=== PATIENT | female | born 1970 | race Caucasian/White ===

== ENCOUNTER 2017-01-07 12:54 | Inpatient (IN) | payer OTHER ==
[~2017-01-07] VITALS: Ht 157.5 cm; Wt 63.1 kg
[~2017-01-07 12:54] MED LIST: ALPR0.5T6 PO; PARO10TA76 PO
[2017-01-07] MEDS ORDERED: ALPRAZOLAM 0.25 MG TAB PO ONE (14:00)
--- NOTE | 2017-01-07 14:32 | RADRPT ---
PROCEDURE: XR Chest. CLINICAL INDICATION: Stroke. Shortness of breath. TECHNIQUE: Single frontal view. COMPARISON: None. FINDINGS: The lungs are clear. The heart size is normal. There is no pleural effusion. There is no pneumothorax. IMPRESSION: 1. Normal chest radiograph. RPTAT: QQ .Samuel Coe MD, MD Date Time Electronically viewed and signed by .Samuel Coe MD, MD on 01/07/2017 14:32 .R/
--- NOTE | 2017-01-07 14:49 | RADRPT ---
PROCEDURE: CT Brain without contrast. CLINICAL INDICATION: Headache, right facial numbness TECHNIQUE: Routine CT scan of the brain was performed on a high resolution multi detector scanner without intravenous contrast. One or more of the following dose reduction techniques were used: Auto mated exposure control; Adjustment of the mA and/or kV according to patient size; Use of iterative r econstruction technique. CTDI = 44 mGy. DLP = 720 mGy-cm. COMPARISON: No prior relevant examinations are available for comparison. FINDINGS: Hemorrhage: No evidence of intracranial hemorrhage. Acute ischemic changes: No evidence of acute ischemic changes. Mass effect/Midline shift: None. Parenchymal volume: Within normal limits for age. Ventricular system: Concordant with parenchymal volume. Chronic changes: Parenchymal attenuation is within normal limits. Extracranial soft tissues: Unremarkable. Calvarium: No fractures. Paranasal sinuses: Visualized paranasal sinuses are clear. Mastoid air cells: Visualized mastoid air cells are clear. IMPRESSION: No acute intracranial abnormalities. Normal appearance the brain parenchyma. MRI of the brain may be useful for further evaluation. RPTAT: AADD .Dominic Altamirano MD, MD Date Time Electronically viewed and signed by .Dominic Altamirano MD, on 01/07/2017 14:48 .B/
[2017-01-07 15:09] LABS: BASOPHILS % 0.3 % (0.0-2.0); EOSINOPHILS % 0.3 % (0.0-7.0); HEMATOCRIT 45.5 % (37.0-47.0); HEMOGLOBIN 15.6 g/dl (12.0-16.0); LYMPHOCYTES # 1.5 10^3/ul (0.8-2.9); LYMPHOCYTES % 15.1 % (15.0-51.0); MEAN CORPUSCULAR HEMOGLOBIN 30.3 pg (29.0-33.0); MEAN CORPUSCULAR HGB CONC 34.2 g/dl (32.0-37.0); MEAN CORPUSCULAR VOLUME 88.4 fl (82.0-101.0); MEAN PLATELET VOLUME 9.6 fl (7.4-10.4); MONOCYTE # 0.5 10^3/ul (0.3-0.9); MONOCYTES % 4.6 % (0.0-11.0); NEUTROPHIL # 8.1 10^3/ul (1.6-7.5); NEUTROPHILS % 79.7 % (39.0-77.0); PLATELET COUNT 309 10^3/UL (140-440); RED BLOOD COUNT 5.14 10^6/ul (4.20-5.40); RED CELL DISTRIBUTION WIDTH 12.6 % (11.5-14.5); UNCORRECTED WBC 10.2 10^3/ul (4.8-10.8); WHITE BLOOD COUNT 10.2 10^3/ul (4.8-10.8)
[2017-01-07 15:09] LABS: ADD UMIC NO; URINE BILIRUBIN (Dip) NEGATIVE (NEGATIVE); URINE BLOOD (Dip) NEGATIVE (NEGATIVE); URINE COLOR LT. YELLOW (YELLOW); URINE GLUCOSE (Dip) NEGATIVE (NEGATIVE); URINE KETONES (Dip) NEGATIVE (NEGATIVE); URINE LEUKOCYTE ESTERASE (Dip) NEGATIVE (NEGATIVE); URINE NITRITE (Dip) NEGATIVE (NEGATIVE); URINE TOTAL PROTEIN (Dip) NEGATIVE (NEGATIVE); URINE UROBILINOGEN (Dip) 0.2 E.U./dL (0.1-1.0)
[2017-01-07 15:10] LABS: INR 0.9; PROTIME 12.1 Sec (12.2-14.2); PT RATIO 0.9
[2017-01-07 15:11] LABS: CONDITION 1; PARTIAL THROMBOPLASTIN TIME 25.2 Sec (25.0-35.0)
[2017-01-07 15:15] LABS: CHLORIDE 102 mmol/L (97-110); POTASSIUM 4.4 mmol/L (3.5-5.1); SODIUM 143 mmol/L (135-144)
[2017-01-07 15:18] LABS: ANION GAP 20 (8-16); BLOOD UREA NITROGEN 10 mg/dl (7-20); CARBON DIOXIDE 25 mmol/L (21-31); CREATININE 0.52 mg/dl (0.44-1.00)
[2017-01-07 15:19] LABS: CALCIUM 10.4 mg/dl (8.4-10.2); GLUCOSE 99 mg/dl (70-220)
[2017-01-07 15:30] LABS: TROPONIN-I < 0.012 ng/ml (0.00-0.12)
[2017-01-07 15:30] LABS: BARBITURATES Negative (NEGATIVE); BENZODIAZEPINES Negative (NEGATIVE); CANNABINOIDS Negative (NEGATIVE); COCAINE Negative (NEGATIVE)
[2017-01-07 15:31] LABS: OPIATES Negative (NEGATIVE)
[2017-01-07] MEDS ORDERED: ASPIRIN 325 MG TAB PO ONE (16:00)
[2017-01-07] MEDS ORDERED: ONDANSETRON 4 MG INJ IV PRN ×2 (17:00→18:30)
[2017-01-07] MEDS ORDERED: ACETAMINOPHEN 325 MG TAB PO PRN ×2 (17:00→18:30)
--- NOTE | 2017-01-07 17:59 | ERA ---
ER Documentation Chief Complaint Date/Time DATE: 01/07/17 TIME: 17:48 Chief Complaint NUMBNESS TO RT SIDE OF FACE SINCE YESTERDAY , B/L EQUAL OCCUPATIONAL THERAPIST ASSISTANTS HPI 46-year-old female with history of hypertension presents for numbness of the entire right side of her head including her scalp and her face that began around the midday yesterday. She also has right arm numbness. She has no weakness of any kind. Denies any other symptoms. She has been speaking normally and does not have any dizziness. ROS All systems reviewed and are negative except as per history of present illness. Medications Home Meds Reported Medications Paroxetine Hcl* (Paroxetine*) 10 Mg Tablet, 10 MG PO DAILY 08/20/13 Alprazolam* (Alprazolam*) 0.5 Mg Tablet, 0.5 MG PO HS 08/20/13 Allergies Allergies: Coded Allergies: No Known Allergy (Unverified , 08/20/13) PMhx/Soc History of Surgery: Yes (PARTIAL HYSTERECTOMY, TONSILLECTOMY, BUNYON REMOVAL) Anesthesia Reaction: No Hx Neurological Disorder: No Hx Respiratory Disorders: No Hx Cardiac Disorders: Yes (HTN) Hx Psychiatric Problems: Yes (ANXIETY DISORDER & DEPRESSION) Hx Miscellaneous Medical Probl: No Hx Alcohol Use: Yes (2 glasses/night) Hx Substance Use: No Hx Tobacco Use: Yes (1-2 CIGARETTES AT NIGHT TIME) Smoking Status: Current every day smoker Physical Exam Vitals Vital Signs Date Time Temp Pulse Resp B/P Pulse Ox O2 Delivery O2 Flow Rate FiO2 01/07/17 16:37 57 18 147/97 99 Room Air 01/07/17 12:57 97.9 68 18 182/86 99 Physical Exam Const: [] No distress Head: Atraumatic Eyes: Normal Conjunctiva ENT: Normal External Ears, Nose and Mouth. Neck: Full range of motion..~ No meningismus. Resp: Clear to auscultation bilaterally Cardio: Regular rate and rhythm, no murmurs Abd: Soft, non tender, non distended. Normal bowel sounds Skin: No petechiae or rashes Back: No midline or flank tenderness Ext: No cyanosis, or edema Neur: Awake and alert and oriented 3, cranial nerves II through XII intact, cerebellar intact, 5 out of 5 strength all extremities distally and proximally, normal gait, NIH equals 1 4 perceived right facial and right arm numbness. Patient is able to discern 2. tactile stimulation and has no specific sensory deficits except for those reported subjectively. Psych: Normal Mood and Affect Result Diagram: 01/07/17 1418 01/07/17 1418 Results 24 hrs Laboratory Tests Test 01/07/17 14:18 01/07/17 14:24 01/07/17 14:50 Activated Partial Thromboplast Time 25.2Sec Anion Gap 20 Basophils # 0.010^3/ul Basophils % 0.3% Blood Urea Nitrogen 10mg/dl Calcium Level 10.4mg/dl Carbon Dioxide Level 25mmol/L Chloride Level 102mmol/L Creatinine 0.52mg/dl Eosinophils # 0.010^3/ul Eosinophils % 0.3% Glucose Level 99mg/dl Hematocrit 45.5% Hemoglobin 15.6g/dl INR International Normalized Ratio 0.90 Lymphocytes # 1.510^3/ul Lymphocytes % 15.1% Mean Corpuscular Hemoglobin 30.3pg Mean Corpuscular Hemoglobin Concent 34.2g/dl Mean Corpuscular Volume 88.4fl Mean Platelet Volume 9.6fl Monocytes # 0.510^3/ul Monocytes % 4.6% Neutrophils # 8.110^3/ul Neutrophils % 79.7% Nucleated Red Blood Cells # 0.010^3/ul Nucleated Red Blood Cells % 0.0/100WBC Platelet Count 94033^3/UL Potassium Level 4.4mmol/L Prothrombin Time 12.1Sec Prothrombin Time Ratio 0.9 Red Blood Count 5.1410^6/ul Red Cell Distribution Width 12.6% Sodium Level 143mmol/L Troponin I < 0.012ng/ml White Blood Count 10.210^3/ul Bedside Glucose 103mg/dL Urine Amphetamines Screen Negative Urine Barbiturates Negative Urine Benzodiazepines Screen Negative Urine Bilirubin NEGATIVE Urine Cannabinoids Negative Urine Clarity CLEAR Urine Cocaine Screen Negative Urine Color LT. YELLOW Urine Glucose NEGATIVE% Urine Hemoglobin NEGATIVE Urine Ketones NEGATIVE Urine Leukocyte Esterase NEGATIVE Urine Nitrite NEGATIVE Urine Opiates Screen Negative Urine Specific [place] <=1.005 Urine Total Protein NEGATIVE Urine Urobilinogen 0.2 E.U./dL Urine pH 7.0 Current Medications Medications (Trade) Dose Ordered Sig/Jerel Route PRN Reason Start Time Stop Time Status Last Admin Dose Admin Alprazolam (Xanax) 0.25 mg ONCE ONCE PO 01/07/17 14:00 01/07/17 14:01 DC 01/07/17 14:10 Aspirin (Aspirin) 325 mg ONCE ONCE PO 01/07/17 16:00 01/07/17 16:01 DC 01/07/17 16:33 Ondansetron HCl (Zofran Inj) 4 mg ER BRIDGE PRN IV NAUSEA AND/OR VOMITING 01/07/17 17:00 01/08/17 16:59 Acetaminophen (Tylenol Tab) 650 mg ER BRIDGE PRN PO MILD PAIN/FEVER 01/07/17 17:00 01/08/17 16:59 Procedures/MDM Patient with symptoms concerning for a CVA. She does have consistent right- sided deficits concerning for left-sided lesion. There is no progression of symptoms but the symptoms is also not resolved. Because of minimal NIH score and duration of symptoms tPA is not indicated in this case. Concern for stroke patient will be admitted for further workup including MRI and neurological evaluation. She be admitted to telemetry on a monitor. When CT came back negative for hemorrhage she was given an aspirin. She remained stable and the monitor had no signs of ischemia on her EKG. EKG interpretation: Normal sinus rhythm rate of 64, normal axis, no ST or T- wave changes concerning for acute ischemia, normal intervals. dice table person interpretation: Normal sinus rhythm without arrhythmia Chest x-ray interpretation: No acute process noted mediastinum no pneumothorax, no infiltrates I see no acute fractures CT brain interpretation: I see no acute process, no hemorrhage no mass-effect no midline shift no skull fractures Departure Diagnosis: Primary Impression: CVA (cerebral vascular accident) Condition: Stable MARLO MIGUEL Jan 07, 2017 17:59
[2017-01-07] MEDS ORDERED: NACL 0.9% 3 ML SYG IV SCH (18:30)
[2017-01-07] MEDS ORDERED: NITROGLYCERIN (SL) 0.4 MG TAB SL PRN (18:30)
[2017-01-07] MEDS ORDERED: MAGNESIUM HYDROXIDE 30ML CUP PO PRN (18:30)
[2017-01-07] MEDS ORDERED: LORAZEPAM 2 MG INJ IV PRN ×2 (18:30→19:30)
[2017-01-07] MEDS ORDERED: hydrALAzine 20 MG INJ IV PRN (18:30)
[2017-01-07] MEDS ORDERED: DOCUSATE SODIUM 100 MG CAP PO PRN (18:30)
[2017-01-07] MEDS ORDERED: HYDROCODONE/APAP (5/325) TAB PO PRN (18:30)
[2017-01-07] MEDS ORDERED: morphine 2 MG INJ IV PRN (18:30)
[2017-01-07] MEDS ORDERED: ALBUTEROL/IPRATROPIUM (NEB) 3 ML AMP HHN PRN (18:30)
[2017-01-07] MEDS ORDERED: NA PHOSPHATE/BIPHOS 133 ML ENEMA PR PRN (18:30)
--- NOTE | 2017-01-07 19:45 | HP ---
DATE OF ADMISSION: 01/07/2017 CHIEF COMPLAINT: Right facial numbness, right upper extremity numbness. HISTORY OF PRESENT ILLNESS: A 46-year-old female, past medical history of anxiety, rosacea, essenti al hypertension who presents with right facial and head numbness. The patient initially had headach e 1 month ago. She went to an urgent care center and had a head CT that was negative. She denies a ny dizziness or loss of consciousness, but in the last day, she has also experienced some right uppe r extremity weakness and right facial numbness. No chest pain, no shortness of breath. No fevers o r chills. No nausea, vomiting. No diarrhea, no constipation, no abdominal pain. When she came int o the ER today, she had head CT, was negative but still complaining of both right upper extremity an d right facial numbness and slight weakness. Apparently her mother has had a stroke in the past, an d the patient has a positive smoking history. PAST MEDICAL HISTORY: Stated above. ALLERGIES: NO KNOWN DRUG ALLERGIES. HOME MEDICINES: 1. Alprazolam 0.5 mg at bedtime. 2. Paroxetine 10 mg daily. PAST SURGICAL HISTORY: Hysterectomy. FAMILY HISTORY: Mother had hypertension and possible stroke. Sister has hypertension. She has an aunt with breast cancer. SOCIAL HISTORY: She smokes 2 cigarettes at night every night for the last 15 years. No IV drug abu se, no alcohol use. VITAL SIGNS: T-max 97.9, pulse 57 to 68, respirations 18, blood pressure 182 to 147 systolic over 8 6 to 97 diastolic, saturating at 99% on room air. PHYSICAL EXAMINATION: GENERAL: The patient is lying in bed, answering questions appropriately. No acute distress. HEENT: Pupils equal, round, react to light. Extraocular muscles intact. NECK: Supple. No thyromegaly. LUNGS: Clear to auscultation bilaterally. CARDIOVASCULAR: S1, S2 heard. No rubs, gallops. ABDOMEN: Soft, nontender, nondistended. Normal bowel sounds. No rebound or guarding. MUSCULOSKELETAL: No lower extremity edema bilaterally. NEUROLOGIC: She has got 5/5 strength in the bilateral lower extremities. She has got 5/5 strength in the bilateral upper extremities. She is alert and oriented x3. She does have decreased sensatio n on the right side of her face, ____ temporal, maxillary and mandibular areas. She has also had de creased sensation in her right upper extremity versus her left upper extremity. 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 LABORATORIES: CBC is completely normal. Basic metabolic panel is normal. Her troponin is 0.012. Her calcium is 10.4. Her U-tox is negative. UA shows negative nitrites, negative leukocyte esteras e. Coagulation studies are negative. IMAGING: Again, the head CT was performed, shows no intracranial abnormalities. Chest x-ray: Norm al chest radiograph. ASSESSMENT AND PLAN: A 46-year-old female coming in with right upper extremity numbness and right f acial numbness, rule out stroke versus transient ischemic attack. 1. Right-sided weakness and numbness. Will admit her to telemetry floor, put her on high-dose aspi rin, do neuro checks every 4 hours, allow for permissive hypertension. Check an MRI of the brain, a carotid Doppler study, echocardiogram. Check TSH, A1c, lipid panel. Rule out for stroke versus TI A. If there are any abnormalities, will need to get neurology consult. 2. Essential hypertension. Again, allow for permissive hypertension at this time, so no hydralazin e unless greater than 220, at least for the first 24 hours or until she rules out for stroke. 3. Rosacea. Again, she has got a facial rash that she sees a shift coordinator for but has not seen th em for last 6 months, presently not on any current medicines for that. Continue to monitor for now. 4. Anxiety. The patient does state claustrophobia. Will put her on Ativan p.r.n. for anxiety. 5. Gastrointestinal prophylaxis. PPI. 6. Deep venous thrombosis prophylaxis. Heparin subQ. 7. Also get PT, OT consults as well and speech therapy consult. Dictated By: MARCO NORMAN Conf#: [id number] DID#: [id number]
--- NOTE | 2017-01-07 20:44 | RADRPT ---
PROCEDURE: MRI Brain without contrast. CLINICAL INDICATION: Right-sided head numbness with facial and right upper extremity tingling. TECHNIQUE: MRI of the brain was performed with the following sequences obtained: Sagittal, coronal and axial T1-weighted, axial T2-weighted, axial FLAIR, axial diffusion weighted (with ADC map), and coronal GRE. COMPARISON: Head CT 01/07/2017 FINDINGS: The diffusion sequence is normal with no evidence for acute infarct. No hemorrhage, mass effect or mass lesion is present. The extraaxial spaces are clear of collections. The ventricular system and sulci are normal. Incidental prominent perivascular space in the left lentiform nucleus is noted, the and anatomic variant No signal alteration is present within the brainstem or cerebellum. The fourth ventricle is midline and the craniocervical junction lesion is intact. The area of the sella is normal. The bony calvarium and skull base are intact. Incidental small mucous retention cyst or polyp in th e left maxillary for is present. There is a small amount of fluid seen within the inferior right ma stoid air cells. The remaining paranasal sinuses and left mastoid air cells are clear. Physiologic flow voids within the internal carotid and vertebral arteries are maintained. RPTAT:HJJR IMPRESSION: 1.Overall unremarkable noncontrast MRI of the brain. There are no findings to help explain the patie nt's provided history. 2. Incidental mucous retention cyst or polyp in the inferior left maxillary antrum. 3. Small amount of fluid within the inferior right mastoid air cells. Physician Elda Date Time Electronically viewed and signed by Physician Elda on 01/07/2017 20:44 /
[2017-01-07] MEDS: SOD CHLORIDE 0.45% 1,000 ML IV SCH (20:47)
[2017-01-07] MEDS: HEPARIN 5,000 UNIT/0.5 ML SYG SC SCH (20:48)
[2017-01-07 22:31] VITALS: PULSE 66
[2017-01-07 23:30] VITALS: BP 131/63; RESP 16
[2017-01-08] VITALS (10 sets, daily range): BP systolic 120–155; BP diastolic 65–74; PULSE 60–84; RESP 14–16; Ht 157.5 cm; Wt 63.1 kg
[2017-01-08] MEDS ORDERED: PANTOPRAZOLE (EC) 40 MG TAB PO SCH (06:00)
[2017-01-08 06:52] LABS: CHOL/HDL RATIO 2.8 RATIO
[2017-01-08 07:18] LABS: THYROID STIMULATING HORMONE 4.46 MIU/L (0.465-4.680)
[2017-01-08] MEDS: SOD CHLORIDE 0.45% 1,000 ML IV SCH (07:33)
--- NOTE | 2017-01-08 07:33 | RADRPT ---
PROCEDURE: US Carotid. CLINICAL INDICATION: Focal cerebral ischemic attack. TECHNIQUE: Multiple sonographic of the carotid arteries were obtained utilizing arredondo scale, Color Doppler, and spectral imaging. COMPARISON: None. FINDINGS: Location Right Left CCA 61.5 cm/sec 62 cm/sec Prox ICA 36.9 cm/sec 48.4 cm/sec Mid ICA 55 cm/sec 67 cm/sec Dist ICA 47.6 cm/sec 54 cm/sec ICA/CCA 0.91 1.08 Antegrade flow is seen within the vertebral arteries bilaterally. No significant plaque is seen within the carotid system bilaterally. IMPRESSION: 1. Right internal carotid artery: No stenosis. 2. Left internal carotid artery: No stenosis. Velocity criteria are extrapolated from diameter data as defined by the Society of Radiologists i n Ultrasound Consensus Conference. Radiology 2003; 229: 340-346. This study does indirectly refere nce the measurement of the distal ICA diameter as the denominator for stenosis measurement. RPTAT: EE .William Gunn MD, Date Time Electronically viewed and signed by .William Gunn MD, on 01/08/2017 07:37 .C/
[2017-01-08 07:37] LABS: CREATININE 0.54 mg/dl (0.44-1.00)
[2017-01-08 07:38] LABS: CALCIUM 8.7 mg/dl (8.4-10.2); MAGNESIUM 2.1 mg/dl (1.7-2.5)
[2017-01-08 07:40] LABS: BASOPHILS % 0.3 % (0.0-2.0); EOSINOPHILS # 0.2 10^3/ul (0.0-0.5); EOSINOPHILS % 2.8 % (0.0-7.0); HEMOGLOBIN 12.6 g/dl (12.0-16.0); LYMPHOCYTES # 2.9 10^3/ul (0.8-2.9); LYMPHOCYTES % 42.4 % (15.0-51.0); MEAN CORPUSCULAR HEMOGLOBIN 30.7 pg (29.0-33.0); MEAN CORPUSCULAR VOLUME 87.9 fl (82.0-101.0); MEAN PLATELET VOLUME 9.4 fl (7.4-10.4); MONOCYTE # 0.5 10^3/ul (0.3-0.9); MONOCYTES % 6.8 % (0.0-11.0); NEUTROPHIL # 3.3 10^3/ul (1.6-7.5); NEUTROPHILS % 47.7 % (39.0-77.0); PLATELET COUNT 240 10^3/UL (140-440); RED BLOOD COUNT 4.09 10^6/ul (4.20-5.40); RED CELL DISTRIBUTION WIDTH 12.2 % (11.5-14.5); UNCORRECTED WBC 6.9 10^3/ul (4.8-10.8); WHITE BLOOD COUNT 6.9 10^3/ul (4.8-10.8)
[2017-01-08 07:43] LABS: CONDITION 1
[2017-01-08] MEDS: HEPARIN 5,000 UNIT/0.5 ML SYG SC SCH (08:53)
[2017-01-08] MEDS ORDERED: PAROXETINE 10 MG TAB PO SCH (09:00)
[2017-01-08] MEDS ORDERED: ASPIRIN (EC) 325 MG TAB PO SCH (09:00)
--- NOTE | 2017-01-08 12:40 | DS ---
Date/Time of Note Date/Time of Note DATE: 01/08/17 TIME: 12:34 Discharge Summary Admission/Discharge Info Admit Date/Time Jan 07, 2017 at 16:48 Discharge Date/Time 01/08/17 Final Diagnosis * RUE and R facial numbness: improved, likely 2/2 hypertensive Neuropathy 2/2 chronic uncontrolled HTN * HTN: Improved control * Chronic depression / anxiety d/o * Chronic Tobacco abuse * Chronic R Mastoiditis on MRI . Patient Condition: Stable Procedures PROCEDURE: MRI Brain without contrast. CLINICAL INDICATION: Right-sided head numbness with facial and right upper extremity tingling. TECHNIQUE: MRI of the brain was performed with the following sequences obtained : Sagittal, coronal and axial T1-weighted, axial T2-weighted, axial FLAIR, axial diffusion weighted (with ADC map), and coronal GRE. COMPARISON: Head CT 01/07/2017 FINDINGS: The diffusion sequence is normal with no evidence for acute infarct. No hemorrhage, mass effect or mass lesion is present. The extraaxial spaces are clear of collections. The ventricular system and sulci are normal. Incidental prominent perivascular space in the left lentiform nucleus is noted, the and anatomic variant No signal alteration is present within the brainstem or cerebellum. The fourth ventricle is midline and the craniocervical junction lesion is intact. The area of the sella is normal. The bony calvarium and skull base are intact. Incidental small mucous retention cyst or polyp in the left maxillary for is present. There is a small amount of fluid seen within the inferior right mastoid air cells. The remaining paranasal sinuses and left mastoid air cells are clear. Physiologic flow voids within the internal carotid and vertebral arteries are maintained. RPTAT:HJJR IMPRESSION: 1.Overall unremarkable noncontrast MRI of the brain. There are no findings to help explain the patient's provided history. 2. Incidental mucous retention cyst or polyp in the inferior left maxillary antrum. 3. Small amount of fluid within the inferior right mastoid air cells. Physician Elda Date Time Electronically viewed and signed by Physician Elda on 01/07/2017 20:44 JR/ PROCEDURE: US Carotid. CLINICAL INDICATION: Focal cerebral ischemic attack. TECHNIQUE: Multiple sonographic of the carotid arteries were obtained utilizing arredondo scale, Color Doppler, and spectral imaging. COMPARISON: None. FINDINGS: Location Right Left CCA 61.5 cm/sec 62 cm/sec Prox ICA 36.9 cm/sec 48.4 cm/sec Mid ICA 55 cm/sec 67 cm/sec Dist ICA 47.6 cm/sec 54 cm/sec ICA/CCA 0.91 1.08 Antegrade flow is seen within the vertebral arteries bilaterally. No significant plaque is seen within the carotid system bilaterally. IMPRESSION: 1. Right internal carotid artery: No stenosis. 2. Left internal carotid artery: No stenosis. Velocity criteria are extrapolated from diameter data as defined by the Society of Radiologists in Ultrasound Consensus Conference. Radiology 2003; 229 : 340-346. This study does indirectly reference the measurement of the distal ICA diameter as the denominator for stenosis measurement. RPTAT: EE .William Gunn MD, MD Date Time Electronically viewed and signed by .William Gunn MD, MD on 01/08/2017 07:37 .C/ PROCEDURE: CT Brain without contrast. CLINICAL INDICATION: Headache, right facial numbness TECHNIQUE: Routine CT scan of the brain was performed on a high resolution multi detector scanner without intravenous contrast. One or more of the following dose reduction techniques were used: Automated exposure control; Adjustment of the mA and/or kV according to patient size; Use of iterative reconstruction technique. CTDI = 44 mGy. DLP = 720 mGy-cm. COMPARISON: No prior relevant examinations are available for comparison. FINDINGS: Hemorrhage: No evidence of intracranial hemorrhage. Acute ischemic changes: No evidence of acute ischemic changes. Mass effect/Midline shift: None. Parenchymal volume: Within normal limits for age. Ventricular system: Concordant with parenchymal volume. Chronic changes: Parenchymal attenuation is within normal limits. Extracranial soft tissues: Unremarkable. Calvarium: No fractures. Paranasal sinuses: Visualized paranasal sinuses are clear. Mastoid air cells: Visualized mastoid air cells are clear. IMPRESSION: No acute intracranial abnormalities. Normal appearance the brain parenchyma. MRI of the brain may be useful for further evaluation. RPTAT: AADD .Dominic Altamirano MD, Date Time Electronically viewed and signed by .Dominic Altamirano MD, on 01/07/2017 14:48 .B/ Hospital Course 46 yo F with a hx of anxiety and depression who presented with RUE and R facial numbness who was admitted for stroke workup. Workup has been entirely negative and symptoms have mildly improved. Patient will be treated for chronic mastoiditis and hypertensive neuropathy. Tobacco cessation counselling done and continued to be reinforced throughout hospitalization. Patient is stable for outpt mgt with PCP Comorbidities were also aggressively managed as per Med records. Patient at this time has been evaluated and examined in detail and is assessed to be in stable condition and ready for discharge. . Time spent on final evaluation and assessment, discharge planning, counselling and coordination has been >40mins. Home Meds Active Scripts Gabapentin* (Gabapentin*) 100 Mg Capsule, 300 MG PO TID, #180 CAP Patient is to start by taking 100 mg thrice daily and increase dosage by 100mg daily until prescribed dose of 300mg tid. Thanks Prov:LESTER TRACY 01/08/17 Amoxicillin/Potassium Clav (Amox-Clav 875-125 mg Tablet) 875-125 mg Tab, 1 TAB PO BID, #20 TAB Prov:LESTER TRACY. 01/08/17 Hydrochlorothiazide* (Hydrochlorothiazide*) 25 Mg Tab, 25 MG PO DAILY, #30 TAB 2 Refills Prov:LESTER TRACY. 01/08/17 Aspirin (Aspir-Rekha) 325 Mg Tablet.dr, 81 MG PO DAILY for 30 Days, 2 Refills Prov:LESTER TRACY 01/08/17 Reported Medications Paroxetine Hcl* (Paroxetine*) 10 Mg Tablet, 10 MG PO DAILY 08/20/13 Alprazolam* (Alprazolam*) 0.5 Mg Tablet, 0.5 MG PO HS 08/20/13 Follow-up Plan Followup with your primary doctor within the next 2-4 weeks tp reassess symptoms If you don't have one please let someone know, we can give you resources that may help you pick one. You may also call your insurance company to assign one to you. Review your medication list with your nurse before leaving and if you need new prescriptions please let your nurse know. I may have made changes to your home medications or given you new prescriptions , please let your primary doctor know as well. Stay compliant with your medications and report any side effects to your PCP or pharmacist. Return to the ER if you have any concerns and cannot reach your doctors or call your insurance company, they usually have a nurse that can help you. Pending Labs Laboratory Tests Test 01/07/17 14:00 01/07/17 14:18 01/07/17 14:24 01/07/17 14:50 Free Thyroxine 0.92ng/dl (0.64-1.79) Activated Partial Thromboplast Time 25.2Sec (25.0-35.0) Anion Gap 20 (8-16) Basophils # 0.010^3/ul (0.0-0.1) Basophils % 0.3% (0.0-2.0) Blood Urea Nitrogen 10mg/dl (7-20) Calcium Level 10.4mg/dl (8.4-10.2) Carbon Dioxide Level 25mmol/L (21-31) Chloride Level 102mmol/L (97-110) Creatinine 0.52mg/dl (0.44-1.00) Eosinophils # 0.010^3/ul (0.0-0.5) Eosinophils % 0.3% (0.0-7.0) Glucose Level 99mg/dl (70-220) Hematocrit 45.5% (37.0-47.0) Hemoglobin 15.6g/dl (12.0-16.0) INR International Normalized Ratio 0.90 Lymphocytes # 1.510^3/ul (0.8-2.9) Lymphocytes % 15.1% (15.0-51.0) Mean Corpuscular Hemoglobin 30.3pg (29.0-33.0) Mean Corpuscular Hemoglobin Concent 34.2g/dl (32.0-37.0) Mean Corpuscular Volume 88.4fl (82.0-101.0) Mean Platelet Volume 9.6fl (7.4-10.4) Monocytes # 0.510^3/ul (0.3-0.9) Monocytes % 4.6% (0.0-11.0) Neutrophils # 8.110^3/ul (1.6-7.5) Neutrophils % 79.7% (39.0-77.0) Nucleated Red Blood Cells # 0.010^3/ul (0.0-0.0) Nucleated Red Blood Cells % 0.0/100WBC (0.0-0.0) Platelet Count 85849^3/UL (140-440) Potassium Level 4.4mmol/L (3.5-5.1) Prothrombin Time 12.1Sec (12.2-14.2) Prothrombin Time Ratio 0.9 Red Blood Count 5.1410^6/ul (4.20-5.40) Red Cell Distribution Width 12.6% (11.5-14.5) Sodium Level 143mmol/L (135-144) Troponin I < 0.012ng/ml (0.00-0.12) White Blood Count 10.210^3/ul (4.8-10.8) Bedside Glucose 103mg/dL (70-220) Urine Amphetamines Screen Negative (NEGATIVE) Urine Barbiturates Negative (NEGATIVE) Urine Benzodiazepines Screen Negative (NEGATIVE) Urine Bilirubin NEGATIVE (NEGATIVE) Urine Cannabinoids Negative (NEGATIVE) Urine Clarity CLEAR (CLEAR) Urine Cocaine Screen Negative (NEGATIVE) Urine Color LT. YELLOW (YELLOW) Urine Glucose NEGATIVE% (NEGATIVE) Urine Hemoglobin NEGATIVE (NEGATIVE) Urine Ketones NEGATIVE (NEGATIVE) Urine Leukocyte Esterase NEGATIVE (NEGATIVE) Urine Nitrite NEGATIVE (NEGATIVE) Urine Opiates Screen Negative (NEGATIVE) Urine Specific [place] <=1.005 (1.003-1.030) Urine Total Protein NEGATIVE (NEGATIVE) Urine Urobilinogen 0.2 E.U./dL (0.1-1.0) Urine pH 7.0 (5.0-9.0) Test 01/08/17 05:56 Anion Gap 15 (8-16) Basophils # 0.010^3/ul (0.0-0.1) Basophils % 0.3% (0.0-2.0) Blood Urea Nitrogen 11mg/dl (7-20) Calcium Level 8.7mg/dl (8.4-10.2) Carbon Dioxide Level 25mmol/L (21-31) Chloride Level 104mmol/L (97-110) Cholesterol Level 187mg/dl (100-200) Cholesterol/HDL Ratio 2.8RATIO Creatinine 0.54mg/dl (0.44-1.00) Eosinophils # 0.210^3/ul (0.0-0.5) Eosinophils % 2.8% (0.0-7.0) Glucose Level 87mg/dl (70-220) HDL Cholesterol 66mg/dl (34-88) Hematocrit 36.0% (37.0-47.0) Hemoglobin 12.6g/dl (12.0-16.0) Hemoglobin A1c 5.5% (0-5.9) LDL Cholesterol, Calculated 98mg/dl Lymphocytes # 2.910^3/ul (0.8-2.9) Lymphocytes % 42.4% (15.0-51.0) Magnesium Level 2.1mg/dl (1.7-2.5) Mean Corpuscular Hemoglobin 30.7pg (29.0-33.0) Mean Corpuscular Hemoglobin Concent 35.0g/dl (32.0-37.0) Mean Corpuscular Volume 87.9fl (82.0-101.0) Mean Platelet Volume 9.4fl (7.4-10.4) Monocytes # 0.510^3/ul (0.3-0.9) Monocytes % 6.8% (0.0-11.0) Neutrophils # 3.310^3/ul (1.6-7.5) Neutrophils % 47.7% (39.0-77.0) Nucleated Red Blood Cells # 0.010^3/ul (0.0-0.0) Nucleated Red Blood Cells % 0.0/100WBC (0.0-0.0) Phosphorus Level 5.0mg/dl (2.5-4.9) Platelet Count 29620^3/UL (140-440) Potassium Level 4.0mmol/L (3.5-5.1) Red Blood Count 4.0910^6/ul (4.20-5.40) Red Cell Distribution Width 12.2% (11.5-14.5) Sodium Level 140mmol/L (135-144) Thyroid Stimulating Hormone (TSH) 4.460MIU/L (0.465-4.680) Triglycerides Level 115mg/dl (0-149) White Blood Count 6.910^3/ul (4.8-10.8) LESTER TRACY Jan 08, 2017 12:40
--- NOTE | 2017-01-08 12:41 | PDOCDIS ---
Discharge Instructions DIAGNOSIS Discharge Diagnosis: R Facial Numbness, Possible Chhronic Mastoiditis, Uncontrolled HTN CONDITION Patient Condition: Stable HOME CARE INSTRUCTIONS: Diet Instructions: Low Fat /Cholesterol ACTIVITY: Activity Restrictions: Slowly Increase Activity Rest between Activity FOLLOW UP/APPOINTMENTS Appointments Followup with your primary doctor within the next 1-2 weeks. If you don't have one please let someone know, we can give you resources that may help you pick one. You may also call your insurance company to assign one to you. Review your medication list with your nurse before leaving and if you need new prescriptions please let your nurse know. I may have made changes to your home medications or given you new prescriptions , please let your primary doctor know as well. Stay compliant with your medications and report any side effects to your PCP or pharmacist. Return to the ER if you have any concerns and cannot reach your doctors or call your insurance company, they usually have a nurse that can help you. OTHER ORDERS: Other Orders: * Please stop smoking. If you have already stopped, Good for you!!!. It is however an ongoing process. If you need help or resources, please let someone know before you leave. We are here to help you. It has been associated with a lot of disease processes and is not favorable for healing. * Please also get your eyes checked by an residential real estate sales manager. Your primary doctor can refer you to one. LESTER TRACY Jan 08, 2017 12:41
[2017-01-08] MEDS ORDERED: ASPI325T32 PO (12:42)
[2017-01-08] MEDS ORDERED: HYD25 PO (12:42)
--- NOTE | 2017-01-08 13:43 | RADRPT ---
Echocardiogram Report Patient Name: GREG PRINGLE Gender: Female Date: 1970 Study Date: 08-Jan-2017 Wire Steward: Paula Bhat [facility] Location: [id number] Ref. Physician: MARCO MOSS Quality: Good Procedures: Transthoracic echocardiogram with complete 2D, M-Mode, and doppler examination. Indications: Chest Pain. 2D/M Mode Doppler Measurement Value Normal Ranges Measurement Value Normal Ranges LVIDd 2D 4.5 3.5 - 5.6 cm AV Peak Ja 1.5 m/sec LVIDs 2D 2.0 2.1 - 4.1 cm AV Peak PG 9.5 mmHg LVPWd 2D 0.9 0.6 - 1.1 cm LVOT Peak Ja 1.3 m/sec IVSd 2D 0.8 0.6 - 1.1 cm LVOT Peak PG 7.3 mmHg AoR Diam 2D 2.6 2.0 - 3.7 cm MV E Peak Ja 0.9 m/sec EDV 2D 94.9 cm3 MV A Peak Ja 1.0 m/sec ESV 2D 7.5 cm3 MV E/A 0.9 LA Dimen 2D 3.3 2.3 - 4.0 cm MV Decel Time 163 msec MV Decel [place] 6 MV E/A 0.9 TR Peak Ja 2.6 m/sec TR Peak PG 26.7 mmHg RVSP 30.0 mmHg Findings Left Ventricle: Normal left ventricular systolic function. Normal left ventricular cavity size. Normal left ventricular wall thickness. Ejection fraction is visually estimated at 6065 %. Right Ventricle: Normal right ventricular size. Normal right ventricular systolic function. Left Atrium: The left atrium is normal in size. Right Atrium: The right atrium is normal in size. Mitral Valve: Mitral valve leaflets appear mildly thickened. Mild mitral annular calcification. Mild mitral valve regurgitation. Aortic Valve: Normal appearance of the aortic valve. No significant aortic stenosis or insufficiency. Tricuspid Valve: Normal appearance of the tricuspid valve. Estimated peak PA systolic pressure 30 mmHg. There is mild tricuspid regurgitation. Pulmonic Valve: Normal pulmonic valve appearance. Pericardium: Normal pericardium with no significant pericardial effusion. Aorta: Normal aortic root. IVC: Normal size and normal respiratory collapse consistent with normal right atrial pressure. Conclusions 1.The left ventricle is normal in size and systolic function. 2.Estimated left ventricular ejection fraction of 60-65%. Electronically Signed By: Bola Wolfe 08-Jan-2017 13:42:40 -0800 Patient Name: GREG PRINGLE Study Date: 08-Jan-[id number]
[2017-01-08] MEDS ORDERED: AMOX1TAB10 PO (15:14)
[2017-01-08] MEDS ORDERED: GABA100C14 PO (15:14)
== END 2017-01-08 17:02 | disposition home or self-care (01) | DRG 74 ==
LOC: E/R 12:54 → TEL 16:48
PROVIDERS: ADMIT Hospitalist; ATTEND Hospitalist
DX: G62.9 Polyneuropathy, unspecified (principal); I10 Essential (primary) hypertension; R20.0 Anesthesia of skin; F17.200 Nicotine dependence, unspecified, uncomplicated; F41.8 Other specified anxiety disorders; H70.91 Unspecified mastoiditis, right ear
CPT/HCPCS: 36415; 70450; 70551; 71010; 80048; 80061; 80307; 81003; 82962; 83036; 83735; 84100; 84439; 84443; 84484; 85025; 85610; 85730; 92610; 93005; 93306; 93880; 96372; 96374; 97162; 97166; J2060